=== PATIENT | female | born 1960 | race Caucasian/White ===

== ENCOUNTER 2023-09-14 17:19 | Inpatient (IN) ==
--- NOTE | 2023-09-14 18:09 | Emergency Department Note ---
Impression & Plan Small bowel obstruction, Abdominal pain, Vomiting ED Provider Note NAME: CHANA LIRA AGE: 63 SEX: F : 1960 ARRIVES VIA: Walk-In INFORMANT: Patient ED PROVIDER(S): Cesar Wong MD CHIEF COMPLAINT: Abdominal pain, nausea and vomiting. PLAN: Disposition: Admit MEDICAL DECISION MAKING: The patient is a pleasant 63-year-old woman with a past medical history of prolonged QT syndrome who presents to the emergency department via walk-in accompanied by her partner for evaluation of mid abdominal pain with associated nausea and vomiting that occurred abruptly this afternoon after eating lunch. She reports she did have a bowel movement this morning that was normal. She denies any similar episodes of pain. She denies any fevers, chills, cough, congestion. Denies any urinary symptoms. She denies any history of abdominal surgeries. On evaluation patient no acute distress, afebrile with heart rate in the 100s and otherwise stable vital signs. She appears clinically dry. She has mild mid abdominal discomfort without discrete tenderness. There is no guarding or rebound. Abdomen is nondistended. WBC, H/H and platelets within normal limits. Chemistry without metabolic acidosis. Electrolytes LFTs without significant abnormality. Lipase is normal. UA without evidence of infection. 1+ ketones are noted consistent with patient's clinical dry appearance. CT of the on pelvis was performed and demonstrates scattered gas/fluid levels throughout the fluid-filled distended but nondilated mid small bowel loops. There is an abrupt tapering in the pelvis involving the mid to distal small bowel with slight inflammation involving the adjacent mesentery and suggests at least an intermediate grade small bowel obstruction at this point and some component of enteritis. Upon reevaluation patient did report feeling some increased pain but no recurrence of vomiting. We did review her results and she does agree with plan for admission for further evaluation. Case was discussed with general surgery Rohit Amaro PA-C with Dr. Juan general surgery on-call. Appreciate consultation and recommendations. Recommends admission to hospitalist service for further management. General surgery will continue to follow. Will defer NG tube at this time given patient does not have any nausea /vomiting. Dr. Lim, [facility] hospitalist, to evaluate the patient for admission. Further management per admitting team. Triage Nursing notes reviewed and agree them. Prior/external medical records reviewed Vital Signs: reviewed Differential diagnosis: Gastroenteritis, food borne illness, infections, appendicitis, diverticulitis, inflammatory bowel disease, obstruction, GI bleed, biliary pathology, volvulus, as well as other pathologies. ER treatment provided: See below. Diagnostics interpreted by me: ECG: Normal sinus rhythm, 64 bpm, no ectopy, no overt ST elevation or depression, QTc 497, QRS 80. Cardiac Monitoring: An order for continuous cardiac monitoring was placed and demonstrated Normal sinus rhythm, 64 bpm, no ectopy. Laboratory studies: See below Imaging studies: See below Consultation(s): Dr. Lim, [facility] hospitalist HPI: The patient is a pleasant 63-year-old woman with a past medical history of prolonged QT syndrome who presents to the emergency department via walk-in accompanied by her partner for evaluation of mid abdominal pain with associated nausea and vomiting that occurred abruptly this afternoon after eating lunch. She reports she did have a bowel movement this morning that was normal. She denies any similar episodes of pain. She denies any fevers, chills, cough, congestion. Denies any urinary symptoms. She denies any history of abdominal surgeries. ROS: See above HPI for pertinent positives & negatives. A total of 10 systems reviewed and were otherwise negative. VITALS:See Below PHYSICAL EXAMINATION: GENERAL: Awake, alert, uncomfortable-appearing, in no distress HENT: Normocephalic, atraumatic. Oropharynx with dry mucous membranes and otherwise unremarkable. EYES: Normal conjunctiva. Sclera non-icteric. NECK: Supple. No nuchal rigidity. FROM. No JVD. RESPIRATORY: Clear to auscultation. CARDIAC: Tachycardic rate, normal rhythm. Extremities warm and well perfused. Pulses equal. ABDOMEN: Soft, non-distended. Mild mid abdominal discomfort without discrete tenderness to palpation. No rebound or guarding. No masses. MUSCULOSKELETAL: Chest examination reveals no tenderness. The back is symmetrical on inspection without obvious abnormality. There is no CVA tenderness to palpation. No joint edema. LOWER EXTREMITIES: Calves are equal size bilaterally and non-tender. No edema. No discoloration. NEURO: Normal sensorium. No sensory or motor deficits noted. SKIN: No rash or jaundice noted. Cesar Wong MD Past Med/Surg History Problem List (Updated 09/15/23 @ 06:36 by Cesar Wong MD) Vomiting (Acute) Abdominal pain (Acute) Hx of fusion of cervical spine Chronic constipation Paroxysmal atrial fibrillation Small bowel obstruction (Acute) Social History Smoking Status: Never smoker Hx Alcohol Use: No Hx Substance Use: No Preferred Language: Hungarian Communication Ability: Effective Balloon Artist Required: No Beliefs That Will Affect Care: None Current Living Situation: Parent 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 Feels Safe at Home: Yes Safety Concerns: Feels Safe At This Time Assistive Devices: None Allergies Allergies Allergy/AdvReac Type Severity Reaction Status Date / Time No Known Allergies Allergy Unverified 09/14/23 20:36 Home Meds Home Medications Medication Instructions Recorded Confirmed Lactobacillus 40-Bifidobact 1 cap PO DAILY 09/14/23 09/14/23 3-S.thermophilus 100 billion cell capsule (Probiotic) acetylcysteine 600 mg capsule (NAC) 600 mg PO DAILY 09/14/23 09/14/23 ascorbic acid (vitamin C) 500 mg 500 mg PO DAILY 09/14/23 09/14/23 tablet (Vitamin C) cholecalciferol (vitamin D3) 50 50 mcg PO DAILY 09/14/23 09/14/23 mcg (2,000 unit) tablet (Vitamin D3) cyanocobalamin (vitamin B-12) 1,000 mcg PO DAILY 09/14/23 09/14/23 1,000 mcg tablet (Vitamin B-12) omega 6-xxl-bex-fish oil 1,000 mg 1 cap PO DAILY 09/14/23 09/14/23 (120 mg-180 mg) capsule (Fish Oil) vitamin E 400 unit tablet 400 unit PO DAILY 09/14/23 09/14/23 zinc gluconate 30 mg tablet 30 mg PO DAILY 09/14/23 09/14/23 Results & Data (ED) Vital Signs Vital Signs - 24 hr 09/14/23 17:54 09/14/23 18:22 09/14/23 18:23 Temperature 36.5 C Temperature Source Temporal Artery Scan Pulse Rate 103 H 61 Pulse Rate [Apical] 60 Pulse Rate from SpO2 Sensor Respiratory Rate 20 20 19 Respiratory Effort / Characteristics Non-Labored Spontaneous Non-Labored Spontaneous Respiratory Depth Normal Normal Respiratory Pattern Regular Blood Pressure 119/56 L Blood Pressure [Left Arm] 134/69 Blood Pressure Mean 77 Blood Pressure Mean [Left Arm] 90 Pulse Oximetry 97 99 99 Oxygen Delivery Method Room Air Room Air Room Air Sepsis Recent Fever Within 48 Hours No Sepsis New/Unexplained Change in Mental Status No Sepsis Action Taken by Nursing No Action Required 09/14/23 18:25 09/14/23 18:30 09/14/23 18:30 Temperature Temperature Source Pulse Rate 70 Pulse Rate [Apical] Pulse Rate from SpO2 Sensor Respiratory Rate Respiratory Effort / Characteristics Respiratory Depth Respiratory Pattern Blood Pressure 124/69 124/69 Blood Pressure [Left Arm] Blood Pressure Mean 94 94 Blood Pressure Mean [Left Arm] Pulse Oximetry Oxygen Delivery Method Sepsis Recent Fever Within 48 Hours Sepsis New/Unexplained Change in Mental Status Sepsis Action Taken by Nursing 09/14/23 18:30 09/14/23 18:30 09/14/23 18:45 Temperature Temperature Source Pulse Rate 61 Pulse Rate [Apical] Pulse Rate from SpO2 Sensor 62 Respiratory Rate 18 Respiratory Effort / Characteristics Respiratory Depth Respiratory Pattern Blood Pressure 124/69 124/69 Blood Pressure [Left Arm] Blood Pressure Mean 94 94 Blood Pressure Mean [Left Arm] Pulse Oximetry 100 Oxygen Delivery Method Sepsis Recent Fever Within 48 Hours Sepsis New/Unexplained Change in Mental Status Sepsis Action Taken by Nursing 09/14/23 18:54 09/14/23 19:00 09/14/23 19:00 Temperature Temperature Source Pulse Rate 61 62 Pulse Rate [Apical] Pulse Rate from SpO2 Sensor 61 62 Respiratory Rate 19 17 Respiratory Effort / Characteristics Respiratory Depth Respiratory Pattern Blood Pressure 124/67 Blood Pressure [Left Arm] Blood Pressure Mean 85 Blood Pressure Mean [Left Arm] Pulse Oximetry 100 99 Oxygen Delivery Method Sepsis Recent Fever Within 48 Hours Sepsis New/Unexplained Change in Mental Status Sepsis Action Taken by Nursing 09/14/23 19:30 09/14/23 19:30 09/14/23 19:42 Temperature Temperature Source Pulse Rate 67 62 Pulse Rate [Apical] Pulse Rate from SpO2 Sensor 67 62 Respiratory Rate 15 12 Respiratory Effort / Characteristics Respiratory Depth Respiratory Pattern Blood Pressure 125/69 Blood Pressure [Left Arm] Blood Pressure Mean 88 Blood Pressure Mean [Left Arm] Pulse Oximetry 100 100 Oxygen Delivery Method Sepsis Recent Fever Within 48 Hours Sepsis New/Unexplained Change in Mental Status Sepsis Action Taken by Nursing 09/14/23 20:00 09/14/23 20:09 09/14/23 20:12 Temperature Temperature Source Pulse Rate 83 81 Pulse Rate [Apical] 78 Pulse Rate from SpO2 Sensor 84 83 Respiratory Rate 20 14 12 Respiratory Effort / Characteristics Non-Labored Spontaneous Respiratory Depth Normal Respiratory Pattern Regular Blood Pressure Blood Pressure [Left Arm] 124/66 Blood Pressure Mean Blood Pressure Mean [Left Arm] 85 Pulse Oximetry 98 100 99 Oxygen Delivery Method Room Air Sepsis Recent Fever Within 48 Hours Sepsis New/Unexplained Change in Mental Status Sepsis Action Taken by Nursing 09/14/23 20:14 09/14/23 20:54 09/14/23 21:00 Temperature Temperature Source Pulse Rate 70 Pulse Rate [Apical] Pulse Rate from SpO2 Sensor 69 Respiratory Rate 14 Respiratory Effort / Characteristics Respiratory Depth Respiratory Pattern Blood Pressure 124/66 133/71 Blood Pressure [Left Arm] Blood Pressure Mean 81 89 Blood Pressure Mean [Left Arm] Pulse Oximetry 100 Oxygen Delivery Method Sepsis Recent Fever Within 48 Hours Sepsis New/Unexplained Change in Mental Status Sepsis Action Taken by Nursing 09/14/23 21:00 09/14/23 21:00 09/14/23 21:03 Temperature Temperature Source Pulse Rate 73 Pulse Rate [Apical] Pulse Rate from SpO2 Sensor 77 Respiratory Rate 21 Respiratory Effort / Characteristics Respiratory Depth Respiratory Pattern Blood Pressure 133/71 133/71 Blood Pressure [Left Arm] Blood Pressure Mean 89 89 Blood Pressure Mean [Left Arm] Pulse Oximetry 100 Oxygen Delivery Method Sepsis Recent Fever Within 48 Hours Sepsis New/Unexplained Change in Mental Status Sepsis Action Taken by Nursing 09/14/23 21:27 09/14/23 21:30 09/14/23 22:00 Temperature Temperature Source Pulse Rate 82 Pulse Rate [Apical] 78 Pulse Rate from SpO2 Sensor 81 Respiratory Rate 16 20 Respiratory Effort / Characteristics Non-Labored Spontaneous Respiratory Depth Normal Respiratory Pattern Regular Blood Pressure 132/76 Blood Pressure [Left Arm] 127/71 Blood Pressure Mean 90 Blood Pressure Mean [Left Arm] 89 Pulse Oximetry 98 99 Oxygen Delivery Method Room Air Sepsis Recent Fever Within 48 Hours Sepsis New/Unexplained Change in Mental Status Sepsis Action Taken by Nursing 09/14/23 22:00 09/14/23 22:22 Temperature Temperature Source Pulse Rate 83 73 Pulse Rate [Apical] Pulse Rate from SpO2 Sensor 83 Respiratory Rate 21 Respiratory Effort / Characteristics Respiratory Depth Respiratory Pattern Blood Pressure Blood Pressure [Left Arm] Blood Pressure Mean Blood Pressure Mean [Left Arm] Pulse Oximetry 98 Oxygen Delivery Method Sepsis Recent Fever Within 48 Hours Sepsis New/Unexplained Change in Mental Status Sepsis Action Taken by Nursing Laboratory Data Attestation: I reviewed the patient's lab results. 09/14/23 18:12 09/14/23 18:12 Lab Results 09/14/23 09/14/23 Range/Units 18:12 20:11 WBC 10.48 (4.8-10.8) K/ul RBC 4.45 (4.20-5.40) M/uL Hgb 13.0 (12.0-16.0) g/dl Hct 37.2 (37.0-47.0) % MCV 83.6 (80.0-100.0) fL MCH 29.2 (25.0-34.0) pg MCHC 34.9 (32.0-36.0) g/dL RDW Std Deviation 36.7 (36.4-46.3) fL RDW Coeff of Marjan 12.0 (11.5-14.5) % Plt Count 235 (130-400) K/uL MPV 9.9 (9.4-12.4) fL Immature Gran % (Auto) 0.5 % Neut % (Auto) 79.2 % Lymph % (Auto) 13.1 % [place] % (Auto) 5.7 % Eos % (Auto) 1.0 % Baso % (Auto) 0.5 % Neut # (Auto) 8.30 H (1.40-6.50) K/uL Lymph # (Auto) 1.37 (1.20-3.40) K/uL [place] # (Auto) 0.60 H (0.11-0.59) K/uL Eos # (Auto) 0.11 (0.00-0.50) K/uL Baso # (Auto) 0.05 (0.00-0.20) K/uL Immature Gran # (Auto) 0.05 (0.01-0.20) K/uL PT 10.7 (9.0-12.0) Seconds INR 1.0 (0.9-1.1) Sodium 138 (136-145) mmol/L Potassium 3.5 (3.5-5.1) mmol/L Chloride 100 (98-107) mmol/L Carbon Dioxide 26 (21-32) mmol/L Anion Gap 12 H (3-11) BUN 15 (6-23) mg/dl Creatinine 0.88 (0.6-1.2) mg/dl Est Cr Clr Drug Dosing 55.0 ml/min Est GFR ( Amer) 79.9 ml/min Est GFR (Non-Af Amer) 68.9 ml/min BUN/Creatinine Ratio 17.0 (10-20) Glucose 134 H (70-99(Fasting)) mg/dl Calcium 9.6 (8.6-10.3) mg/dl Magnesium 2.1 (1.7-2.4) mg/dl Total Bilirubin 1.1 H (0.2-1.0) mg/dl AST 18 (13-39) U/L ALT 15 (7-52) U/L Alkaline Phosphatase 50 (34-104) U/L Total Protein 7.2 (6.0-8.3) gm/dl Albumin 4.7 (3.4-5.0) gm/dl Globulin 2.5 (2.5-4.0) gm/dl Albumin/Globulin Ratio 1.9 (0.9-2) Lipase 21 (11-82) U/L Urine Color Yellow Urine Appearance Clear (Clear) Urine pH 8.0 H (4.5-7.5) Ur Specific [place] 1.024 (1.000-1.030) Urine Protein Negative (Negative) Urine Glucose (UA) Negative (Negative) Urine Ketones 1+ H (Negative) Urine Blood Negative (Negative) Urine Nitrite Negative (Negative) Urine Bilirubin Negative (Negative) Urine Urobilinogen Negative (Negative) Ur Leukocyte Esterase Negative (Negative) Administered Medications Lactated Ringer's (Lr) 1,000 mls @ 125 mls/hr IV .Q8H SIMON Stop: 10/15/23 01:29 Last Admin: 09/15/23 01:50 Dose: 125 mls/hr Documented By: BIBIANAI Ketorolac Tromethamine (Ketorolac Tromethamine 15 Mg/Ml Vial) 15 mg IV Q6H PRN PRN Reason: Pain Stop: 09/19/23 23:35 Last Admin: 09/15/23 00:33 Dose: 15 mg Documented By: HB Morphine Sulfate (Morphine Sulfate 2 Mg/Ml Carp) 2 mg IV Q4H PRN PRN Reason: Pain Stop: 09/28/23 23:35 Last Admin: 09/15/23 01:37 Dose: 2 mg Documented By: AAStephanie Ondansetron HCl (Ondansetron Inj 2 Mg/Ml 2 Ml Vial) 4 mg IV Q4H PRN PRN Reason: Nausea Stop: 10/15/23 00:35 Last Admin: 09/15/23 00:48 Dose: 4 mg Documented By: HB Discontinued Medications Sodium Chloride (Nss) 1,000 mls @ 999 mls/hr IV .Q1H1M ONE Stop: 09/14/23 19:07 Last Infusion: 09/14/23 20:02 Dose: Infused Documented By: Admin: 09/14/23 18:14 Dose: 999 mls/hr Documented By: COLEEN [facility] 1,000 mg in 100 mls @ 400 mls/hr IV NOW STA Stop: 09/14/23 18:44 Last Infusion: 09/14/23 20:02 Dose: Infused Documented By: Admin: 09/14/23 18:35 Dose: 400 mls/hr Documented By: DOC Famotidine (Pepcid 20mg Iv Push) 20 mg in 5 mls @ 2.5 mls/min IV NOW STA Stop: 09/14/23 18:31 Last Admin: 09/14/23 18:34 Dose: 2.5 mls/min Documented By: DOC Prochlorperazine (Compazine) 1 mls @ 1 mls/min IV ONE ONE Stop: 09/14/23 18:31 Last Admin: 09/14/23 20:14 Dose: Not Given Documented By: DOC Sodium Chloride (Nss) 1,000 mls @ 999 mls/hr IV .Q1H1M ONE Stop: 09/14/23 21:48 Last Infusion: 09/14/23 22:33 Dose: Infused Documented By: Admin: 09/14/23 21:08 Dose: 999 mls/hr Documented By: DOC Prochlorperazine 5 mg/ Syringe 5 mls @ 5 mls/min IV ONE ONE Stop: 09/14/23 20:58 Last Admin: 09/14/23 21:11 Dose: Not Given Documented By: DOC Ioversol (Optiray 320 100ml) 90 ml IV ONCE ONE Stop: 09/14/23 19:57 Last Admin: 09/14/23 19:57 Dose: 90 ml Documented By: CORDELIA Morphine Sulfate (Morphine Sulfate 4 Mg/Ml 1 Ml Carp\Vial) 4 mg IV NOW STA Stop: 09/14/23 20:49 Last Admin: 09/14/23 21:09 Dose: 4 mg Documented By: DOC Prochlorperazine (Prochlorperazine 5 Mg/Ml 2 Ml Vial) 5 mg IV ONCE ONE Stop: 09/14/23 21:07 Last Admin: 09/14/23 21:07 Dose: 5 mg Documented By: DOC Imaging Data Radiologist's Impression: Abdomen/Pelvis CT 09/14/23 18:30 Exam(s): CT ABDOMEN + PELVIS With Contrast IV Amt: 90 ml optiray 320 EXAM: CT Abdomen and Pelvis With Intravenous Contrast CLINICAL HISTORY: Reason for exam: abd pain, n/v. TECHNIQUE: Axial computed tomography images of the abdomen and pelvis with intravenous contrast. CTDI is 8 mGy and DLP is 346.89 mGy-cm. Automated exposure control was utilized for the study. A dose lowering technique was utilized adhering to the principles of ALARA. CONTRAST: Patient received 90 ml optiray 320 of IV contrast COMPARISON: No relevant prior studies available. FINDINGS: Lung bases: Unremarkable. No mass. No consolidation. ABDOMEN: Liver: Unremarkable. No mass. Gallbladder and bile ducts: Unremarkable. No calcified stones. No ductal dilation. Pancreas: Unremarkable. No mass. No ductal dilation. Spleen: Unremarkable. No splenomegaly. Adrenals: Unremarkable. No mass. Kidneys and ureters: Unremarkable. No solid mass. No hydronephrosis. Stomach and bowel: There are scattered gas fluid levels throughout fluid-filled distended but nondilated mid small bowel loops. There is an abrupt tapering in the pelvis involving the mid to distal small bowel with slight inflammation involving the adjacent mesentery. No mucosal thickening. PELVIS: Appendix: The appendix is normal. Bladder: Unremarkable. No mass. Reproductive: There are several fibroids measuring up to 1.6 cm within the uterus. ABDOMEN and PELVIS: Intraperitoneal space: See above. Bones/joints: Mild degenerative changes throughout the spine. No acute fracture or subluxation is seen. Soft tissues: Unremarkable. Vasculature: Unremarkable. No abdominal aortic aneurysm. Lymph nodes: Unremarkable. No enlarged lymph nodes. IMPRESSION: There are scattered gas fluid levels throughout fluid-filled distended but nondilated mid small bowel loops. There is an abrupt tapering in the pelvis involving the mid to distal small bowel with slight inflammation involving the adjacent mesentery. There appears to be at least an intermediate grade small bowel obstruction at this point and some component of enteritis. This is best appreciated on the coronal reformatted images, series 300, images 39-53. No pneumoperitoneum, free fluid, or abscess is identified. Electronically signed by: Jesus Figueredo MD 09/14/23 20:39 PM Discharge Plan Visit Data Chief Complaint: Abdominal Pain Stated Complaint: [facility] ED Provider: Cesar Wong Discharge Problem: Small bowel obstruction, Abdominal pain, Vomiting Patient Disposition: Admitted As Inpatient Discharge Instructions Interventions: ED Discharge Assessment Last Done: 09/14/23 23:36 Discharge Problem: Abdominal pain Qualifiers: Abdominal location: periumbilical Qualified Code(s): R10.33 - Periumbilical pain Vomiting Qualifiers: Vomiting type: unspecified Nausea presence: unspecified Qualified Code(s): R 11.10 - Vomiting, unspecified
[2023-09-14] MEDS: SODIUM CHLORIDE 0.9% 1,000 ML IV ONE ×2 (18:14→21:08)
[2023-09-14 18:31] LABS: Basophils # (auto) 0.05 K/uL (0.00-0.20); Basophils % (auto) 0.5 %; Eosinophils # (auto) 0.11 K/uL (0.00-0.50); Hematocrit (blood only) 37.2 % (37.0-47.0); Immature Granulocytes # (auto) 0.05 K/uL (0.01-0.20); Immature Granulocytes % (auto) 0.5 %; Lymphocytes # (auto) 1.37 K/uL (1.20-3.40); Lymphocytes % (auto) 13.1 %; Mean Corpuscular Hemoglobin 29.2 pg (25.0-34.0); Mean Corpuscular Hgb Conc 34.9 g/dL (32.0-36.0); Mean Corpuscular Volume 83.6 fL (80.0-100.0); Mean Platelet Volume 9.9 fL (9.4-12.4); Monocytes % (auto) 5.7 %; Neutrophils % (auto) 79.2 %; Platelet Count 235 K/uL (130-400); RDW Standard Deviation 36.7 fL (36.4-46.3); Red Blood Count 4.45 M/uL (4.20-5.40); White Blood Count 10.48 K/ul (4.8-10.8)
[2023-09-14] MEDS: FAMOTIDINE 20MG IV PUSH 20 MG/5 ML SYR IV STA (18:34)
[2023-09-14] MEDS: ACETAMINOPHEN 1,000 MG/100 ML VIAL IV STA (18:35)
[2023-09-14 18:48] LABS: Albumin Globulin Ratio 1.9 (0.9-2); Albumin Level 4.7 gm/dl (3.4-5.0); Bilirubin,Total 1.1 mg/dl (0.2-1.0); Calcium 9.6 mg/dl (8.6-10.3); Est GFR (African American) 79.9 ml/min; Est GFR (Non-African American) 68.9 ml/min; Globulin 2.5 gm/dl (2.5-4.0); Potassium 3.5 mmol/L (3.5-5.1); Total Protein 7.2 gm/dl (6.0-8.3)
[2023-09-14 18:54] LABS: Prothrombin Time 10.7 Seconds (9.0-12.0)
[2023-09-14] MEDS: OPTIRAY 320 100ml IV ONE (19:57)
[2023-09-14] MEDS: PROCHLORPERAZINE 1 ML IV ONE (20:14)
[2023-09-14 20:30] LABS: Appearance Urine Clear (Clear); Bilirubin Urine Negative (Negative); Blood Urine Negative (Negative); Color Urine Yellow; Glucose Urine UA Negative (Negative); Ketones Urine 1+ (Negative); Leukocyte Esterase Urine Negative (Negative); Nitrite Urine Negative (Negative); Protein Urine Negative (Negative); Specific Gravity Urine 1.024 (1.000-1.030); Urobilinogen Urine Negative (Negative)
--- NOTE | 2023-09-14 20:40 | CT Scan Report ---
Exam(s): CT ABDOMEN + PELVIS With Contrast IV Amt: 90 ml optiray 320 EXAM: CT Abdomen and Pelvis With Intravenous Contrast CLINICAL HISTORY: Reason for exam: abd pain, n/v. TECHNIQUE: Axial computed tomography images of the abdomen and pelvis with intravenous contrast. CTDI is 8 mGy and DLP is 346.89 mGy-cm. Automated exposure control was utilized for the study. A dose lowering technique was utilized adhering to the principles of ALARA. CONTRAST: Patient received 90 ml optiray 320 of IV contrast COMPARISON: No relevant prior studies available. FINDINGS: Lung bases: Unremarkable. No mass. No consolidation. ABDOMEN: Liver: Unremarkable. No mass. Gallbladder and bile ducts: Unremarkable. No calcified stones. No ductal dilation. Pancreas: Unremarkable. No mass. No ductal dilation. Spleen: Unremarkable. No splenomegaly. Adrenals: Unremarkable. No mass. Kidneys and ureters: Unremarkable. No solid mass. No hydronephrosis. Stomach and bowel: There are scattered gas fluid levels throughout fluid-filled distended but nondilated mid small bowel loops. There is an abrupt tapering in the pelvis involving the mid to distal small bowel with slight inflammation involving the adjacent mesentery. No mucosal thickening. PELVIS: Appendix: The appendix is normal. Bladder: Unremarkable. No mass. Reproductive: There are several fibroids measuring up to 1.6 cm within the uterus. ABDOMEN and PELVIS: Intraperitoneal space: See above. Bones/joints: Mild degenerative changes throughout the spine. No acute fracture or subluxation is seen. Soft tissues: Unremarkable. Vasculature: Unremarkable. No abdominal aortic aneurysm. Lymph nodes: Unremarkable. No enlarged lymph nodes. IMPRESSION: There are scattered gas fluid levels throughout fluid-filled distended but nondilated mid small bowel loops. There is an abrupt tapering in the pelvis involving the mid to distal small bowel with slight inflammation involving the adjacent mesentery. There appears to be at least an intermediate grade small bowel obstruction at this point and some component of enteritis. This is best appreciated on the coronal reformatted images, series 300, images 39-53. No pneumoperitoneum, free fluid, or abscess is identified. Electronically signed by: Jesus Figueredo MD 09/14/23 20:39 PM
[2023-09-14] MEDS: PROCHLORPERAZINE 5 MG/ML 2 ML VIAL IV ONE (21:07)
[2023-09-14] MEDS: MoRPHine SULFATE 4 MG/ML 1 ML CARP\\VIAL IV STA (21:09)
[2023-09-14] MEDS: PROCHLORPERAZINE 5 MG in SYRINGE 4 ML IV ONE (21:11)
--- NOTE | 2023-09-14 21:18 | Surgery Consultation ---
Date of Consultation September 14, 2023 Assessment & Plan (1) Small bowel obstruction: I discussed with the treating emergency room physician the patient is being admitted on the hospital service. Per surgery perspective we recommend the following: Implement n.p.o. status Provide IV fluid for hydration Provide analgesics and antiemetics Follow serial labs I discussed the use of an NG tube with this patient but as her abdomen is not distended and she has minimal pain at this time, coupled with the fact that she has not had any emesis in nearly 2 hours I feel we can hold on this modality but did discuss with the patient if she has worsening of her clinical status this modality will need to be reconsidered The patient does report history of atrial fibrillation but she is currently in normal sinus rhythm. There is no intervention she does not take any anticoagulants raising concern for possible mesenteric ischemia but the present time she is having minimal pain and does not appear to have clinical presentation consistent with mesenteric ischemia. At the time of my interview the patient appeared nontoxicshe was normotensive without tachycardia or fever. She also does not exhibit leukocytosis or acute kidney injury and therefore conservative management is warranted at this time Additional recommendations be forthcoming based on her clinical course as unfolds Addendum (4:15 AM) Patient was revisited at bedside. She was sleeping comfortably in bed. She notes that she has not had return of bowel function since admission but she denies any worsening abdominal pain. On physical exam her abdomen is soft and nondistended without significant pain with palpation or rebound tenderness or guarding. Supervising Physician Co-Signing Physician Notes I personally saw and evaluated the patient with Dom Amaro PA-C and agree with the assessment and plan. 63 yo female with chronic constipation, small bowel obstruction CT images and results were personally viewed and interpreted by myself No history of abdominal surgeries so doubt a true obstruction Admitted to medicine, keep NPO No plans for surgery as her abdomen is benign History of Present Illness Reason for Consultation: Small bowel obstruction History of Present Illness This is a 63-year-old female who presented to the emergency department secondary to sudden onset of abdominal pain earlier today. She said that the pain is located in the central region of her abdomen and she did have associated nausea and vomiting. She denies any fevers, shakes, or chills. She notes she had a normal bowel movement this morning but has not had any since and since her pain began she has not been passing any flatus. She notes she has never had a colonoscopy. She has never had any prior abdominal surgeries. She does note that her most recent bout of emesis was approximately 1-1/2 to 2 hours ago. She further reports she has a history of atrial fibrillation and she does not take any medicines for this condition. Since arrival to the hospital patient has had labs and imaging which I independent reviewed. Patient had CT scan of the abdomen and pelvis that showed some scattered gas/fluid levels throughout fluid-filled and distended nondilated mid small bowel loops. There is an abrupt tapering in the pelvis involving the mid to distal small bowel with some inflammation involving the adjacent mesentery which should be interpreting radiologist felt may have represented an intermediate grade small bowel obstruction versus a component of enteritis. There is no pneumoperitoneum, free fluid, or abscess identified. Labs include a CBC were white blood cell count, hemoglobin, hematocrit, and platelet count were normal. Chemistry profile showed sodium and potassium as well as the BUN and creatinine were normal. An EKG was performed that showed normal sinus rhythm without any changes indicative of acute ischemia. At the time of my interview the patient was resting comfortably in bed and she was in no distress. Regarding past medical history she reports a history of atrial fibrillation Regarding past surgical history she denies any prior surgeries Regarding social history she does not smoke Regarding family history she denies family history of premature coronary artery disease Allergies Allergy/AdvReac Type Severity Reaction Status Date / Time No Known Allergies Allergy Unverified 09/14/23 20:36 Home Medications Medication Instructions Recorded Confirmed Type Lactobacillus 40-Bifidobact 1 cap PO DAILY 09/14/23 09/14/23 History 3-S.thermophilus 100 billion cell capsule (Probiotic) acetylcysteine 600 mg capsule (NAC) 600 mg PO DAILY 09/14/23 09/14/23 History ascorbic acid (vitamin C) 500 mg 500 mg PO DAILY 09/14/23 09/14/23 History tablet (Vitamin C) cholecalciferol (vitamin D3) 50 50 mcg PO DAILY 09/14/23 09/14/23 History mcg (2,000 unit) tablet (Vitamin D3) cyanocobalamin (vitamin B-12) 1,000 mcg PO DAILY 09/14/23 09/14/23 History 1,000 mcg tablet (Vitamin B-12) omega 6-xdq-igd-fish oil 1,000 mg 1 cap PO DAILY 09/14/23 09/14/23 History (120 mg-180 mg) capsule (Fish Oil) vitamin E 400 unit tablet 400 unit PO DAILY 09/14/23 09/14/23 History zinc gluconate 30 mg tablet 30 mg PO DAILY 09/14/23 09/14/23 History Patient History Social History Smoking Status: Never smoker Hx Alcohol Use: No Hx Substance Use: No Preferred Language: Czech Communication Ability: Effective Quality Director Required: No Beliefs That Will Affect Care: None Current Living Situation: Parent 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 Feels Safe at Home: Yes Safety Concerns: Feels Safe At This Time Assistive Devices: None Review of Systems Review of Systems: All systems reviewed & are unremarkable except as noted in HPI & below Physical Exam Constitutional: WD/WN, vitals as above Eyes: no conjunctival abnormality ENMT: Ears: no hearing impairment and no external ear abnormality Mouth: no oropharynx abnormality Neck: trachea midline Respiratory: normal respiratory effort; no respiratory distress and no labored breathing Cardiovascular: Rate/Rhythm: regular rate and regular rhythm Gastrointestinal (Abdomen): At the time of my exam the patient's abdomen was noted to be soft and nondistended. There is no rebound tenderness or guarding. The patient only had slight pain with palpation in the periumbilical region. Musculoskeletal: No calf tenderness Skin: no rashes Neurologic: moves all extremities Psychiatric: A+Ox3, euthymic affect Results & Data Vital Signs (Past 12 Hours) Vital Signs Temp Pulse Pulse Resp BP BP Pulse Ox 09/14/23 20:00 78 20 124/66 98 09/14/23 18:25 70 09/14/23 18:23 61 19 99 09/14/23 18:22 60 20 134/69 99 09/14/23 17:54 36.5 C 103 H 20 119/56 L 97 O2 Del Method 09/14/23 20:00 Room Air 09/14/23 18:25 09/14/23 18:23 Room Air 09/14/23 18:22 Room Air 09/14/23 17:54 Room Air PG Care Time/CCT Total # of Minutes Spent Total Time Spent with Patient: Total time spent is greater than 50% in coordination of care (as documented) at patient's floor/unit and/or counseling patient: Coding Level of Care Code 81189 INT INP/OBS CARE MIN Diagnoses Small bowel obstruction K56.609
--- NOTE | 2023-09-14 22:28 | History & Physical Report ---
Date of Service September 14, 2023 Assessment & Plan (1) Small bowel obstruction: (2) Chronic constipation: (3) Paroxysmal atrial fibrillation: Plan Patient is a 63 yo F w/ a PMHx of neck arthritis, paroxysmal AFib (s/p unsuccessful ablation), constipation, Hx of C6-C7 spinal fusion who presented today w/ Sx of nausea, vomiting, and central/umbilical abdominal pain that she first experienced after eating lunch today (N/V were delayed by 3-4 hrs following onset of pain). 1) Small bowel obstruction - CT-AP --> There are scattered gas fluid levels throughout fluid-filled distended but nondilated mid small bowel loops. There is an abrupt tapering in the pelvis involving the mid to distal small bowel with slight inflammation involving the adjacent mesentery. There appears to be at least an intermediate grade small bowel obstruction at this point and some component of enteritis. - WBC, 10.5; Hgb, 13.0 --> no lab indications of infection or lower GI bleed 2) Chronic constipation - Hx of chronic constipation - Pt takes Mg glycinate and castor oil at night - no medication or supplements for now, could consider Miralax later during stay 3) Paroxysmal atrial fibrillation - pt not on any prescribed medication for this, takes Mg supplement to control AFib - Mg level ordered, pt admitted to Med-Tele Code status: Full code Disposition: Med-Surg w/ Telemetry DVT Prophylaxis: SCD's (to knee) FENGI: NPO for now, History of Present Illness Chief Complaint: vomiting, nausea, abdominal pain Primary Care Provider: NO PCP Patient is a 63 yo F w/ a PMHx of neck arthritis, paroxysmal AFib (s/p unsuccessful ablation), constipation, Hx of C6-C7 spinal fusion who presented today w/ Sx of nausea, vomiting, and central/umbilical abdominal pain that she first experienced after eating lunch today (N/V were delayed by 3-4 hrs following onset of pain). Patient has a Hx of constipation which she treats w/ Mg-glycinate and castor oil pills. Patient is not currently on any anti- coagulation or rate or rhythm control for her paroxysmal AFib but does take a Mg supplement that she feels controls her AFib symptoms. Allergies Allergy/AdvReac Type Severity Reaction Status Date / Time No Known Allergies Allergy Unverified 09/14/23 20:36 Home Medications Medication Instructions Recorded Confirmed Type Lactobacillus 40-Bifidobact 1 cap PO DAILY 09/14/23 09/14/23 History 3-S.thermophilus 100 billion cell capsule (Probiotic) acetylcysteine 600 mg capsule (NAC) 600 mg PO DAILY 09/14/23 09/14/23 History ascorbic acid (vitamin C) 500 mg 500 mg PO DAILY 09/14/23 09/14/23 History tablet (Vitamin C) cholecalciferol (vitamin D3) 50 50 mcg PO DAILY 09/14/23 09/14/23 History mcg (2,000 unit) tablet (Vitamin D3) cyanocobalamin (vitamin B-12) 1,000 mcg PO DAILY 09/14/23 09/14/23 History 1,000 mcg tablet (Vitamin B-12) omega 8-kwb-heh-fish oil 1,000 mg 1 cap PO DAILY 09/14/23 09/14/23 History (120 mg-180 mg) capsule (Fish Oil) vitamin E 400 unit tablet 400 unit PO DAILY 09/14/23 09/14/23 History zinc gluconate 30 mg tablet 30 mg PO DAILY 09/14/23 09/14/23 History Past Med/Surg History Problem List (Updated 09/15/23 @ 13:53 by Natasha Bauer PA-C) Prolonged QT interval Vomiting (Acute) Abdominal pain (Acute) Hx of fusion of cervical spine Chronic constipation Paroxysmal atrial fibrillation Small bowel obstruction (Acute) Social History Smoking Status: Never smoker Hx Alcohol Use: No Hx Substance Use: No Preferred Language: Mosotho Communication Ability: Effective 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 Beliefs That Will Affect Care: None Current Living Situation: Parent 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 Feels Safe at Home: Yes Safety Concerns: Feels Safe At This Time Assistive Devices: None Review of Systems Constitutional: no fever and no chills Respiratory: no cough, no chest congestion and no dyspnea Cardiovascular: + palpitations (chronically yes, today n o); no chest pain and no lightheadedness Gastrointestinal: + abdominal pain (5/10 on severity scale ), + nausea, + vomiting and + constipation (chronically constipated); no hematemesis Genitourinary: no dysuria, no urinary frequency and no urinary hesitancy Neurologic: + loss of sensation (r. hand goes numb d epending on neck position) and + numbness Physical Exam Constitutional: WD/WN, vitals as above Respiratory: normal respiratory effort, lungs clear to auscultation Cardiovascular: RRR, no murmur, no edema Extremities: + abnormal capillary refill, no calf tenderness and no pedal edema Gastrointestinal (Abdomen): Inspection/Auscultation: normal bowel sounds; no visible pulsation Percussion/Palpation: + abdomen tender (umbilical tenderness noted, 5/10 post 1 dose of morphine) and abdomen soft; no hepatosplenomegaly and no pulsatile mass Psychiatric: A+Ox3, euthymic affect Results & Data Results & Data Vital Signs (Past 12 Hours) Vital Signs Temp Pulse Pulse Resp BP BP Pulse Ox 09/14/23 22:00 83 21 98 09/14/23 22:00 78 20 127/71 99 09/14/23 21:30 132/76 09/14/23 21:27 82 16 98 09/14/23 21:03 73 21 100 09/14/23 21:00 133/71 09/14/23 21:00 133/71 09/14/23 21:00 133/71 09/14/23 20:54 70 14 100 09/14/23 20:14 124/66 09/14/23 20:12 81 12 99 09/14/23 20:09 83 14 100 09/14/23 20:00 78 20 124/66 98 09/14/23 19:42 62 12 100 09/14/23 19:30 125/69 09/14/23 19:30 67 15 100 09/14/23 19:00 124/67 09/14/23 19:00 62 17 99 09/14/23 18:54 61 19 100 09/14/23 18:45 61 18 100 09/14/23 18:30 124/69 09/14/23 18:30 124/69 09/14/23 18:30 124/69 09/14/23 18:30 124/69 09/14/23 18:25 70 09/14/23 18:23 61 19 99 09/14/23 18:22 60 20 134/69 99 09/14/23 17:54 36.5 C 103 H 20 119/56 L 97 O2 Del Method 09/14/23 22:00 09/14/23 22:00 Room Air 09/14/23 21:30 09/14/23 21:27 09/14/23 21:03 09/14/23 21:00 09/14/23 21:00 09/14/23 21:00 09/14/23 20:54 09/14/23 20:14 09/14/23 20:12 09/14/23 20:09 09/14/23 20:00 Room Air 09/14/23 19:42 09/14/23 19:30 09/14/23 19:30 09/14/23 19:00 09/14/23 19:00 09/14/23 18:54 09/14/23 18:45 09/14/23 18:30 09/14/23 18:30 09/14/23 18:30 09/14/23 18:30 09/14/23 18:25 09/14/23 18:23 Room Air 09/14/23 18:22 Room Air 09/14/23 17:54 Room Air Supervising Physician Co-Signing Physician Notes Attending addendum: I have physically seen this patient, have supervised the medical residents activities, and agree with the H&P unless as otherwise noted. Assessment and Plan: Small bowel obstruction/enteritis- Involving mid to distal small bowel causing intermediate grade small bowel obstruction Status post 1 L normal saline x 2 in the ED, Tylenol 1 g IV, famotidine 20 mg IV, morphine sulfate 4 mg IV and Compazine IV x 2 NPO Holding on NG tube for now IV fluids as noted Follow serial CBC with differential, chemistry profile and magnesium level every morning Consult to general surgery Paroxysmal atrial fibrillation- She prefers to take magnesium glycinate on her own for control Magnesium level ordered and pending Follow-up med/tele No significant ectopy on monitor in ED
[2023-09-14 23:31] LABS: Magnesium 2.1 mg/dl (1.7-2.4)
[2023-09-15] MEDS: KETOROLAC TROMETHAMINE 15 MG/ML VIAL IV PRN (00:33)
[2023-09-15] MEDS: ONDANSETRON INJ 2 MG/ML 2 ML VIAL IV PRN (00:48)
[2023-09-15] MEDS: MoRPHine SULFATE 2 MG/ML CARP IV PRN (01:37)
[2023-09-15] MEDS: LACTATED RINGER'S 1,000 ML IV SCH (01:50)
--- NOTE | 2023-09-15 06:39 | Electrocardiogram Report ---
Test Reason : Blood Pressure : / mmHG Vent. Rate : 064 BPM Atrial Rate : 064 BPM P-R Int : 176 ms QRS Dur : 080 ms QT Int : 482 ms P-R-T Axes : 082 -05 040 degrees QTc Int : 497 ms Normal sinus rhythm Prolonged QT Abnormal ECG No previous ECGs available Confirmed by Robert Sesay ([id number]) on 09/15/2023 6:38:32 AM Referred By: Confirmed By:Robert Sesay
[2023-09-15] MEDS: CHOLECALCIFEROL 25 MCG (1000 UNITS) TAB PO SCH (07:29)
[2023-09-15] MEDS: ACETYLCYSTEINE 600 MG CAP PO SCH (07:29)
[2023-09-15] MEDS: TOCOPHERYL, DL-ALPHA 400 UNITS 180 MG CAP PO SCH (07:29)
[2023-09-15] MEDS: CYANOCOBALAMIN (B-12) 500 MCG TABLET PO SCH (07:30)
[2023-09-15] MEDS: ASCORBIC ACID 500 MG TAB PO SCH (07:30)
[2023-09-15] MEDS: ZINC SULFATE 220 MG CAPSULE PO SCH (07:30)
[2023-09-15] MEDS: OMEGA-3 (PURIFIED FISH OIL) 1 GM CAP PO SCH (07:30)
[2023-09-15] MEDS ORDERED: METOCLOPRAMIDE HCL INJ 5 MG/ML 2 ML VIAL IV PRN (08:02)
--- NOTE | 2023-09-15 09:32 | Surgery Progress Note ---
Date of Service September 15, 2023 Assessment & Plan (1) Small bowel obstruction: Plan: pt denies n/v this am , no flatus abd discomfort 310 abd soft TTP, non distended encouraged OOB and ambulation vss, no wbc elevation may trial sips/chips if starts passing flatus will continue to montior Admission and Anticipated Discharge Date Admission Date: September 14, 2023 Supervising Physician Co-Signing Physician Notes I personally saw and evaluated the patient with Marielle WILSON and agree with the assessment and plan. 63 yo female with chronic constipation, small bowel obstruction Await return of bowel function Contrast study tomorrow if she has had no meaningful return Subjective pt denies n/v this am , no flatus abd discomfort 04/25 Review of Systems Constitutional: no fever and no chills Respiratory: no dyspnea Cardiovascular: no chest pain Gastrointestinal: + abdominal pain; no nausea and no vomit ing Musculoskeletal: no muscle weakness Physical Exam Constitutional: cooperative and comfortable; no acute distress Respiratory: normal respiratory effort and able to speak in complete sentences; no respiratory distress Cardiovascular: Rate/Rhythm: regular rate Gastrointestinal (Abdomen): Inspection/Auscultation: abdomen normal to inspection; abdomen not distended Percussion/Palpation: + abdomen tender and abdomen soft; no guarding Musculoskeletal: no cyanosis or clubbing, extremities motor strength 5/5 Results & Data Vital Signs (Past 12 Hours) Vital Signs Temp Pulse Pulse Pulse Resp BP BP 09/15/23 07:24 98.4 F 68 15 111/69 09/15/23 07:16 67 09/15/23 01:23 62 09/15/23 01:15 98.2 F 64 16 131/75 09/15/23 01:00 68 16 124/63 09/14/23 22:22 73 09/14/23 22:00 83 21 09/14/23 22:00 78 20 127/71 09/14/23 21:30 132/76 Pulse Ox O2 Del Method 09/15/23 07:24 99 Room Air 09/15/23 07:16 09/15/23 01:23 09/15/23 01:15 99 Room Air 09/15/23 01:00 99 Room Air 09/14/23 22:22 09/14/23 22:00 98 09/14/23 22:00 99 Room Air 09/14/23 21:30 Results CBC w Diff Results: RBC 4.45 M/uL (4.20-5.40) 09/14/23 WBC 10.48 K/ul (4.8-10.8) 09/14/23 Hgb 13.0 g/dl (12.0-16.0) 09/14/23 Hct 37.2 % (37.0-47.0) 09/14/23 MCV 83.6 fL (80.0-100.0) 09/14/23 MCH 29.2 pg (25.0-34.0) 09/14/23 MCHC 34.9 g/dL (32.0-36.0) 09/14/23 RDW Standard Deviation 36.7 fL (36.4-46.3) 09/14/23 RDW Coefficient of Variation 12.0 % (11.5-14.5) 09/14/23 Plt Count 235 K/uL (130-400) 09/14/23 MPV 9.9 fL (9.4-12.4) 09/14/23 Neutrophils (%) (Auto) 79.2 % 09/14/23 Lymphocytes (%) (Auto) 13.1 % 09/14/23 Monocytes # (Auto) 0.60 K/uL (0.11-0.59) H 09/14/23 Eosinophils # (Auto) 0.11 K/uL (0.00-0.50) 09/14/23 Immature Granulocyte % (Auto) 0.5 % 09/14/23 Neutrophils # (Auto) 8.30 K/uL (1.40-6.50) H 09/14/23 Lymphocytes # (Auto) 1.37 K/uL (1.20-3.40) 09/14/23 Monocytes # (Auto) 0.60 K/uL (0.11-0.59) H 09/14/23 Eosinophils # (Auto) 0.11 K/uL (0.00-0.50) 09/14/23 Basophils # (Auto) 0.05 K/uL (0.00-0.20) 09/14/23 Immature Granulocyte # (Auto) 0.05 K/uL (0.01-0.20) 4 PG Care Time/CCT Total # of Minutes Spent Total Time Spent with Patient: Total time spent is greater than 50% in coordination of care (as documented) at patient's floor/unit and/or counseling patient: Coding Level of Care Code 41784 SUB INP/OBS CARE 03/12MIN Diagnoses Small bowel obstruction K56.609
--- NOTE | 2023-09-15 13:54 | Hospitalist Progress Note ---
Date of Service September 15, 2023 Assessment & Plan (1) Small bowel obstruction: Plan: - CT-AP: There are scattered gas fluid levels throughout fluid-filled distended but nondilated mid small bowel loops. There is an abrupt tapering in the pelvis involving the mid to distal small bowel with slight inflammation involving the adjacent mesentery. There appears to be at least an intermediate grade small bowel obstruction at this point and some component of enteritis. 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 Saw a "cold laser expert" in [place] that did not recommend ablation at that time. Has never been on anticoagulation Telemetry so far has been SR Continue to monitor, will defer starting anticoagulation at this time and encourage patient to get established with PCP - offered to get scheduled with [place] PCP and she declined this. (3) Chronic constipation: Plan: Hx of chronic constipation - Pt takes Mg glycinate and castor oil at night - hold for now (4) Prolonged QT interval: Plan: QTC 497 on admission EKG - zofran changed to Reglan Plan Dispo: continued inpatient stay Dvt proph: SCDs Discussed case with Dr. Juan, general surgery. Admission and Anticipated Discharge Date Admission Date: September 14, 2023 Supervising Physician Co-Signing Physician Notes PA Supervision Note: I did not personally see or examine the patient today, but I verified all brown points of MUKSEH Bauer's assessment and plan with the following excep tions/additions: None Subjective Patent seen sitting up in bed. Has been passing gas, no BM. Rates pain 2/10 but has not needed prn pain medication no further nausea or vomiting no hx of abdominal surgeries - no PCP, planning to get established with [facility] program Tele - SR 70s Review of Systems Review of Systems: All systems reviewed & are unremarkable except as noted in Subjective Physical Exam Physical Exam: General: NAD, VS as above Resp: normal respiratory effort, lungs clear to auscultation CV: RRR, no murmur, Abd: normal bowel sounds, non tender, no hepatosplenomegaly Extremities: Moves all extremities, no edema Neuro: A&O x3, Skin: intact, no lesions noted Results & Data Results & Data Vital Signs (Past 12 Hours) Vital Signs Temp Pulse Pulse Resp BP Pulse Ox O2 Del Method 09/15/23 11:12 36.9 C 61 15 118/68 99 Room Air 09/15/23 07:24 36.9 C 68 15 111/69 99 Room Air 09/15/23 07:16 67 Laboratory Results CBC, chemsitry, UA reviewed Diagnostic Findings CT A/P reviewed PG Care Time/CCT Total # of Minutes Spent Total Time Spent with Patient: Total time spent is greater than 50% in coordination of care (as documented) at patient's floor/unit and/or counseling patient: Coding Level of Care Code 49321 SUB INP/OBS CARE 3/50MIN Diagnoses Small bowel obstruction K56.609 Paroxysmal atrial fibrillation I48.0 Chronic constipation K59.09 Prolonged QT interval R94.31
--- NOTE | 2023-09-15 20:06 | Billing Data ---
Date of Service September 15, 2023 Coding Level of Care Code 80188 INT INP/OBS CARE
[2023-09-16] MEDS: ACETAMINOPHEN 325 MG TAB PO PRN (05:29)
[2023-09-16 07:19] LABS: Albumin Globulin Ratio 2.1 (0.9-2); Albumin Level 3.9 gm/dl (3.4-5.0); BUN Creatinine Ratio 9.3 (10-20); Bilirubin,Total 1.4 mg/dl (0.2-1.0); Calcium 8.5 mg/dl (8.6-10.3); Creatinine Clr Calc Pharmacy 67.2 ml/min; Est GFR (African American) 96.9 ml/min; Est GFR (Non-African American) 83.6 ml/min; Globulin 1.9 gm/dl (2.5-4.0); Potassium 3.6 mmol/L (3.5-5.1); Total Protein 5.8 gm/dl (6.0-8.3)
[2023-09-16 08:01] LABS: Basophils # (auto) 0.04 K/uL (0.00-0.20); Basophils % (auto) 0.9 %; Eosinophils % (auto) 4.5 %; Hematocrit (blood only) 36.4 % (37.0-47.0); Hemoglobin 12.2 g/dl (12.0-16.0); Immature Granulocytes # (auto) 0.01 K/uL (0.01-0.20); Immature Granulocytes % (auto) 0.2 %; Lymphocytes # (auto) 1.05 K/uL (1.20-3.40); Lymphocytes % (auto) 23.8 %; Mean Corpuscular Hemoglobin 29.5 pg (25.0-34.0); Mean Corpuscular Hgb Conc 33.5 g/dL (32.0-36.0); Mean Corpuscular Volume 87.9 fL (80.0-100.0); Monocytes # (auto) 0.37 K/uL (0.11-0.59); Monocytes % (auto) 8.4 %; Neutrophils # (auto) 2.74 K/uL (1.40-6.50); Neutrophils % (auto) 62.2 %; Platelet Count 184 K/uL (130-400); RDW Coefficient of Variation 12.3 % (11.5-14.5); RDW Standard Deviation 39.5 fL (36.4-46.3); Red Blood Count 4.14 M/uL (4.20-5.40); White Blood Count 4.41 K/ul (4.8-10.8)
--- NOTE | 2023-09-16 09:34 | Surgery Progress Note ---
Date of Service September 16, 2023 Assessment & Plan (1) Small bowel obstruction: Plan: She remains benign and has started to pass flatus SBFT has been ordered for today, will follow up these results Admission and Anticipated Discharge Date Admission Date: September 14, 2023 Subjective Pt seen and examined. Denies abdominal pain. No N/v. No BM but passing a lot of flatus. Review of Systems Constitutional: no fever and no chills Gastrointestinal: no abdominal pain, no nausea and no vomiting Physical Exam Constitutional: WD/WN, vitals as above Gastrointestinal (Abdomen): Inspection/Auscultation: abdomen normal to inspection; abdomen not distended Percussion/Palpation: abdomen soft; abdomen nontender and no guarding Results & Data Vital Signs (Past 12 Hours) Vital Signs Temp Pulse Pulse Resp BP Pulse Ox O2 Del Method 09/16/23 08:16 69 09/16/23 08:02 36.6 C 61 16 126/85 98 Room Air 09/16/23 07:43 36.5 C 68 16 115/62 100 Room Air 09/16/23 02:52 37 C 67 16 104/55 L 95 Room Air 09/15/23 22:59 Room Air 09/15/23 22:55 36.7 C 66 16 99/55 L 96 Room Air 09/15/23 22:50 61 PG Care Time/CCT Total # of Minutes Spent Total Time Spent with Patient: Total time spent is greater than 50% in coordination of care (as documented) at patient's floor/unit and/or counseling patient: Coding Level of Care Code 90571 SUB INP/OBS CARE 03/12MIN Diagnoses Small bowel obstruction K56.609
--- NOTE | 2023-09-16 10:34 | Fluoroscopy Report ---
[place] small bowel follow through CLINICAL HISTORY: Small bowel obstruction with no hx of abdominal surgery COMPARISON STUDY: Abdomen and pelvis CT 09/14/2023. FLUOROSCOPY TIME: None. FLUOROSCOPY IMAGES: 3 overhead images of the abdomen and pelvis. Exposure dose: None. FINDINGS: No dilated loops of bowel on district court administrator image. Mild levoscoliosis. Mild to moderate fecal retent ion. A patient swallowed barium without difficulty. The small bowel is normal in course and caliber. The contrast reached the colon at 20 minutes. Therefore, no evidence for a small bowel obstruction. IMPRESSION: No evidence for a small bowel obstruction. ACT 112: Negative or not required by law. Electronically signed by: Matty Goldman M.D. 09/16/2023 10:33 AM
--- NOTE | 2023-09-16 14:43 | Discharge Summary ---
Discharge Summary Date of Service September 16, 2023 Principal Dx & Hospital Course #1 = Principal Diagnosis (1) Small bowel obstruction: - CT-AP: There are scattered gas fluid levels throughout fluid-filled distended but nondilated mid small bowel loops. There is an abrupt tapering in the pelvis involving the mid to distal small bowel with slight inflammation involving the adjacent mesentery. There appears to be at least an intermediate grade small bowel obstruction at this point and some component of enteritis. - no hx of abdominal surgery - no signs on infection - Small bowel follow through -without obstruction or masses - General surgery consulted - conservative management, no NG tube needed with return of bowel function, multiple loose BMs. Tolerating low fiber diet without issue. 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 Saw a "cold laser expert" in [place] that did not recommend ablation at that time. Has never been on anticoagulation Telemetry showed sinus rhythm for duration of stay - will defer starting anticoagulation at this time and encourage patient to get established with PCP - offered to get scheduled with [place] PCP and she declined this. (4) Prolonged QT interval: QTC 497 on admission EKG Plan dispo: discharge to home today Notes For Next Care Provider admitted with small bowel obstruction, unclear cause. Recommend continue low fiber diet Medication Changes From Visit none Admission HPI Per Admitting Provider Patient is a 63 yo F w/ a PMHx of neck arthritis, paroxysmal AFib (s/p unsuccessful ablation), constipation, Hx of C6-C7 spinal fusion who presented today w/ Sx of nausea, vomiting, and central/umbilical abdominal pain that she first experienced after eating lunch today (N/V were delayed by 3-4 hrs following onset of pain). Patient has a Hx of constipation which she treats w/ Mg-glycinate and castor oil pills. Patient is not currently on any anti- coagulation or rate or rhythm control for her paroxysmal AFib but does take a Mg supplement that she feels controls her AFib symptoms. Discharge Exam General: NAD, VS as above Resp: normal respiratory effort, lungs clear to auscultation CV: RRR, no murmur, Abd: normal bowel sounds, non tender, no hepatosplenomegaly Extremities: Moves all extremities, no edema Neuro: A&O x3, Skin: intact, no lesions noted Updated Medication List Medication Instructions Recorded Confirmed Type Lactobacillus 40-Bifidobact 1 cap PO DAILY 09/14/23 09/14/23 History 3-S.thermophilus 100 billion cell capsule (Probiotic) acetylcysteine 600 mg capsule (NAC) 600 mg PO DAILY 09/14/23 09/14/23 History ascorbic acid (vitamin C) 500 mg 500 mg PO DAILY 09/14/23 09/14/23 History tablet (Vitamin C) cholecalciferol (vitamin D3) 50 50 mcg PO DAILY 09/14/23 09/14/23 History mcg (2,000 unit) tablet (Vitamin D3) cyanocobalamin (vitamin B-12) 1,000 mcg PO DAILY 09/14/23 09/14/23 History 1,000 mcg tablet (Vitamin B-12) omega 0-wju-psj-fish oil 1,000 mg 1 cap PO DAILY 09/14/23 09/14/23 History (120 mg-180 mg) capsule (Fish Oil) vitamin E 400 unit tablet 400 unit PO DAILY 09/14/23 09/14/23 History zinc gluconate 30 mg tablet 30 mg PO DAILY 09/14/23 09/14/23 History Hospital Stay Data Consultations 09/14/23 21:42 ED Decision to Admit Stat 09/14/23 23:36 Consult General Surgery Routine Diagnostic Imagining Performed Abdomen/Pelvis CT 09/14/23 18:30 Exam(s): CT ABDOMEN + PELVIS With Contrast IV Amt: 90 ml optiray 320 EXAM: CT Abdomen and Pelvis With Intravenous Contrast CLINICAL HISTORY: Reason for exam: abd pain, n/v. TECHNIQUE: Axial computed tomography images of the abdomen and pelvis with intravenous contrast. CTDI is 8 mGy and DLP is 346.89 mGy-cm. Automated exposure control was utilized for the study. A dose lowering technique was utilized adhering to the principles of ALARA. CONTRAST: Patient received 90 ml optiray 320 of IV contrast COMPARISON: No relevant prior studies available. FINDINGS: Lung bases: Unremarkable. No mass. No consolidation. ABDOMEN: Liver: Unremarkable. No mass. Gallbladder and bile ducts: Unremarkable. No calcified stones. No ductal dilation. Pancreas: Unremarkable. No mass. No ductal dilation. Spleen: Unremarkable. No splenomegaly. Adrenals: Unremarkable. No mass. Kidneys and ureters: Unremarkable. No solid mass. No hydronephrosis. Stomach and bowel: There are scattered gas fluid levels throughout fluid-filled distended but nondilated mid small bowel loops. There is an abrupt tapering in the pelvis involving the mid to distal small bowel with slight inflammation involving the adjacent mesentery. No mucosal thickening. PELVIS: Appendix: The appendix is normal. Bladder: Unremarkable. No mass. Reproductive: There are several fibroids measuring up to 1.6 cm within the uterus. ABDOMEN and PELVIS: Intraperitoneal space: See above. Bones/joints: Mild degenerative changes throughout the spine. No acute fracture or subluxation is seen. Soft tissues: Unremarkable. Vasculature: Unremarkable. No abdominal aortic aneurysm. Lymph nodes: Unremarkable. No enlarged lymph nodes. IMPRESSION: There are scattered gas fluid levels throughout fluid-filled distended but nondilated mid small bowel loops. There is an abrupt tapering in the pelvis involving the mid to distal small bowel with slight inflammation involving the adjacent mesentery. There appears to be at least an intermediate grade small bowel obstruction at this point and some component of enteritis. This is best appreciated on the coronal reformatted images, series 300, images 39-53. No pneumoperitoneum, free fluid, or abscess is identified. Electronically signed by: Jesus Figueredo MD 09/14/23 20:39 PM Small Bowel X-Ray 09/16/23 07:00 FL small bowel follow through CLINICAL HISTORY: Small bowel obstruction with no hx of abdominal surgery COMPARISON STUDY: Abdomen and pelvis CT 09/14/2023. FLUOROSCOPY TIME: None. FLUOROSCOPY IMAGES: 3 overhead images of the abdomen and pelvis. Exposure dose: None. FINDINGS: No dilated loops of bowel on toaster element repairer image. Mild levoscoliosis. Mild to moderate fecal retention. A patient swallowed barium without difficulty. The small bowel is normal in course and caliber. The contrast reached the colon at 20 minutes. Therefore, no evidence for a small bowel obstruction. IMPRESSION: No evidence for a small bowel obstruction. ACT 112: Negative or not required by law. Electronically signed by: Matty Goldman M.D. 09/16/2023 10:33 AM Pending Results Patient Have Any Pending Studies at Discharge: No Discharge Instructions Given to Patient (Per Discharging Provider) Ms. Spaulding, You were hospitalized after having nausea, vomiting and abdominal pain, this was found to be a small bowel obstruction on CT scan. Thankfully this has improved with conservative measures. You had a small bowel follow through study that did not show any mass that caused the obstruction and showed that the obstruction had resolved. Recommend continuing a lower fiber diet until your bowels return to normal. I have attached information about this below. You can resume your magnesium and castor oil when your bowels become formed. Thankfully, you did not have any atrial fibrillation while you were here. Recommend getting established with a PCP, they may order a monitor that you wear for a prolonged period of time (~30 days) to see what is happening with your heart when you feel like you are having afib or WPW. No changes to your home medications. Activity: You can do normal everyday activities as your body allows. Take rest breaks if you feel tired. Do not overexert. Stop activity if you have pain, shortness of breath or feel dizzy. Follow-up appointments: Make an appointment with your primary care physician within one week of discharge. Every time you see your primary care physician, or any other doctor, bring your medication list, and a list of questions. CONTACT YOUR PRIMARY CARE PROVIDER if you experience any of the following: Shortness of breath or difficulty breathing Fevers or chills Feeling tired with normal activity or experiencing dizziness or fainting Difficulty following your treatment plan, or difficulty taking medications CALL 911 OR GO TO THE EMERGENCY DEPARTMENT if you experience any of the following: Severe abdominal pain or nausea/vomiting Severe chest pain, or chest pain that radiates (moves) to your jaw or arm Sudden, severe shortness of breath or difficulty breathing Thank you for allowing us to participate in your care. Total Time Total Time Spent Total Time Spent (In Minutes): Time spend day of discharge 35 minutes including direct patient care, medication reconciliation, documentation, review of labs and images, and coordination of care. Supervising Physician Co-Signing Physician Notes PA Supervision Note: I personally saw and examined the patient. I verified all brown points and agree with MUKESH Bauer with the following exceptions and/or additions: S-patient feeling much improved, moving her bowels quite a bit since receiving contrast for her small bowel follow-through. No nausea and she is tolerating full liquids diet. No abdominal pain, ambulating. No other complaints and ready to go home O- Vitals reviewed Gen: AAOx3, NAD HEENT: Anicteric sclerae, EOMI CV: RRR no mgr nl S1S2 Pulm: CTAB no wcr Abd: +BS soft NT ND no masses or hernias Ext: No edema, 2+ DP pulses Skin: No rashes, warm/dry Neuro: Full strength throughout CBC, BMP reviewed, small bowel follow-through reviewed [id number]-old female here with small bowel obstruction, possibly not a complete bowel obstruction, unknown cause but possibly secondary to chronic constipation Advised low fiber diet, keeping bowels moving, drinking plenty of fluids Stable for discharge to home Coding Level of Care Code 67292 INP/OBS DISCH >30 MIN Diagnoses Small bowel obstruction K56.609 Chronic constipation K59.09 Paroxysmal atrial fibrillation I48.0 Prolonged QT interval R94.31
== END 2023-09-16 16:05 | disposition home or self-care (01) | DRG 390 ==
LOC: SUATTDRO → ED 17:19 → EDINP 22:59 → SUATTDRO 22:59 → 2N 23:36